=== PATIENT | female | born 1950 | race Hispanic/Latino ===

== ENCOUNTER 2017-09-30 20:30 | Inpatient (IN) | payer MEDICARE ==
[2017-09-30 21:48] LABS: Basophils % (Auto) 0.6 % (0.0-1.8); Eosinophils % (Auto) 2.7 % (0.0-4.3); Hematocrit 43.1 % (30.3-42.9); Hemoglobin 14.7 gm/dl (10.1-14.3); Mean Corpuscular HGB Conc 34 % (30-34); Mean Corpuscular Hemoglobin 32 pg (28-32); Mean Corpuscular Volume 93 fl (79-97); Platelet Count 169 K/mm3 (140-440); Red Blood Count 4.64 M/mm3 (3.65-5.03); Red Cell Distribution Width 12.2 % (13.2-15.2)
[2017-09-30 21:58] LABS: INR 0.78 (0.87-1.13)
[2017-09-30 21:59] LABS: Anion Gap 19 mmol/L; BUN/Creatinine Ratio 26; Blood Urea Nitrogen 13 mg/dL (7-17); Calcium 9.4 mg/dL (8.4-10.2); Carbon Dioxide 25 mmol/L (22-30); Glucose 384 mg/dL (65-100); Partial Thromboplastin Time 25.2 Sec. (24.2-36.6); Potassium 4.1 mmol/L (3.6-5.0); Sodium 136 mmol/L (137-145)
--- NOTE | 2017-09-30 23:11 | Emergency Department Report ---
ED Chest Pain HPI - General Chief Complaint: Chest Pain Stated Complaint: CHEST PAIN Time Seen by Provider: 09/30/17 21:16 Source: patient Mode of arrival: Stretcher Limitations: No Limitations - History of Present Illness Initial Comments: Patient said yesterday she started having chest pain on the left side of her chest she took one sublingual nitroglycerin spray and the pain improved. She said this evening she had another episode of chest pain she took 2 sublingual nitroglycerin sprays and it improved. However about an hour later the pain came again on the left side radiating down the left arm which is when she decided to call 911 MD Complaint: chest pain Onset/Timin (hrs ago) -: Gradual Time: 19:20 Onset: during rest Pain Location: left chest Pain Radiation: LUE Severity: severe Severity scale (0 -10): 0 Quality: sharp Consistency: now resolved Improves With: nothing Worsens With: nothing re: nausea, dyspnea Treatments Prior to Arrival: none Aspirin use within the Past 7 Days: (1) Yes - Related Data Home Medications Medication Instructions Recorded Confirmed Last Taken Aspirin [Aspirin BABY CHEW TAB] 81 mg PO QDAY 03/11/14 10/08/14 03/11/14 Beclomethasone Dipropionate [Qvar 8.7 gm PO BID 03/11/14 10/08/14 03/11/14 80MCG] Citalopram Hydrobromide [celeXA] 20 mg PO HS 03/11/14 10/08/14 03/10/14 Clopidogrel Bisulfate [Plavix] 75 mg PO DAILY 03/11/14 10/08/14 03/11/14 Diclofenac Sodium [Voltaren] 100 gm TRANSDERMA DAILY PRN 03/11/14 10/08/1403/10 Duloxetine HCl [Cymbalta] 60 mg PO QDAY 03/11/14 10/08/14 03/11/14 Esomeprazole Magnesium [NexIUM] 40 mg PO QDAY 03/11/14 10/08/14 03/11/14 Gabapentin Enacarbil [Horizant] 600 mg PO 4XD 03/11/14 10/08/14 03/11/14 Insulin Glargine,Hum.rec.anlog 40 units SUB-Q HS 05/12/14 12/09/14 05/11/14 [Lantus] Levalbuterol Tartrate [Xopenex Hfa] 1 puff IH BID PRN 03/11/14 10/08/14 03/11/14 Morphine [Morphine TAB] 30 mg PO BID 03/11/14 10/08/14 03/11/14 Nitroglycerin [Nitrostat] 0.4 mg SL Q5M 03/11/14 10/08/14 Unknown Ranolazine [Ranexa] 500 mg PO BID 03/11/14 10/08/14 03/11/14 Rosuvastatin (Nf) [Crestor] 20 mg PO QHS 03/11/14 10/08/14 03/11/14 clonazePAM 0.5 mg PO TID 03/11/14 10/08/14 03/11/14 clonazePAM [KlonoPIN] 0.5 mg PO BID 03/11/14 10/08/14 03/11/14 Previous Rx's Medication Instructions Recorded Last Taken Type Ibuprofen [Motrin] 600 mg PO Q8H PRN #50 tablet 04/27/15 Unknown Rx Oxycodone HCl/Acetaminophen 1 each PO Q6HR PRN #20 tablet 04/27/15 Unknown Rx [Percocet 10-325 mg] Allergies Allergy/AdvReac Type Severity Reaction Status Date / Time hydromorphone HCl Allergy Itching Verified 04/26/15 13:53 [From Dilaudid] zolpidem tartrate Allergy Dizziness Verified 04/26/15 13:53 [From Ambien] Heart Score - HEART Score History: Moderately suspicious EKG: Non-specific Age: > 65 Risk factors: > 3 risk factors or hx of atherosclerotic disease Troponin: < normal limit HEART Score: 6 - Critical Actions Critical Actions: 4-6 pts:12-16.6% risk of adverse cardiac event. Should be admitted (will call for admit) ED Review of Systems ROS: Stated complaint: CHEST PAIN Other details as noted in HPI Comment: All other systems reviewed and negative ED Past Medical Hx - Past Medical History Previous Medical History?: Yes Hx Hypertension: Yes Hx Heart Attack/AMI: Yes Hx Congestive Heart Failure: Yes Hx Diabetes: Yes Hx Deep Vein Thrombosis: Yes Hx Arthritis: Yes Additional medical history: CAD - Surgical History Past Surgical History?: Yes Hx Coronary Stent: Yes (12) Additional Surgical History: Hysterectomy, Venkata. elbow surgery, Left knee replacement, Venkata. bunionectomy, Venkata Carpel tunnel surgery both wrist - Social History Smoking Status: Never Smoker Substance Use Type: None - Medications Home Medications: Home Medications Medication Instructions Recorded Confirmed Last Taken Type Aspirin [Aspirin BABY CHEW TAB] 81 mg PO QDAY 03/11/14 10/08/14 03/11/14 History Beclomethasone Dipropionate [Qvar 8.7 gm PO BID 03/11/14 10/08/14 03/11/14 History 80MCG] Citalopram Hydrobromide [celeXA] 20 mg PO HS 03/11/14 10/08/14 03/10/14 History Clopidogrel Bisulfate [Plavix] 75 mg PO DAILY 03/11/14 10/08/14 03/11/14 History Diclofenac Sodium [Voltaren] 100 gm TRANSDERMA DAILY PRN 03/11/14 10/08/1403/10 History Duloxetine HCl [Cymbalta] 60 mg PO QDAY 03/11/14 10/08/14 03/11/14 History Esomeprazole Magnesium [NexIUM] 40 mg PO QDAY 03/11/14 10/08/14 03/11/14 History Gabapentin Enacarbil [Horizant] 600 mg PO 4XD 03/11/14 10/08/14 03/11/14 History Insulin Glargine,Hum.rec.anlog 40 units SUB-Q HS 03/11/14 10/08/14 03/10/14 History [Lantus] Levalbuterol Tartrate [Xopenex Hfa] 1 puff IH BID PRN 03/11/14 10/08/14 History Morphine [Morphine TAB] 30 mg PO BID 03/11/14 10/08/14 03/11/14 History Nitroglycerin [Nitrostat] 0.4 mg SL Q5M 03/11/14 10/08/14 Unknown History Ranolazine [Ranexa] 500 mg PO BID 03/11/14 10/08/14 03/11/14 History Rosuvastatin (Nf) [Crestor] 20 mg PO QHS 03/11/14 10/08/14 03/11/14 History clonazePAM 0.5 mg PO TID 03/11/14 10/08/14 03/11/14 History clonazePAM [KlonoPIN] 0.5 mg PO BID 03/11/14 10/08/14 03/11/14 History Ibuprofen [Motrin] 600 mg PO Q8H PRN #50 tablet 04/27/15 Unknown Rx Oxycodone HCl/Acetaminophen 1 each PO Q6HR PRN #20 tablet 04/27/15 Unknown Rx [Percocet 10-325 mg] ED Physical Exam - General Limitations: No Limitations General appearance: alert, in no apparent distress - Head Head exam: Present: atraumatic, normocephalic - Eye Eye exam: Present: normal appearance, PERRL Pupils: Present: normal accommodation - ENT ENT exam: Present: normal exam, normal orophraynx, mucous membranes moist - Neck Neck exam: Present: normal inspection, full ROM - Respiratory Respiratory exam: Present: normal lung sounds bilaterally. Absent: respiratory distress, wheezes - Cardiovascular Cardiovascular Exam: Present: regular rate, normal rhythm - GI/Abdominal GI/Abdominal exam: Present: soft. Absent: distended, tenderness, guarding - Rectal Rectal exam: Present: deferred - Extremities Exam Extremities exam: Present: normal inspection, full ROM - Back Exam Back exam: Present: normal inspection, full ROM - Neurological Exam Neurological exam: Present: alert, oriented X3. Absent: altered - Skin Skin exam: Present: warm, dry ED Course Vital Signs 09/30/17 09/30/17 09/30/17 21:00 21:01 21:15 Temperature 98.3 F Pulse Rate 90 92 H 94 H Respiratory 16 16 12 Rate Blood Pressure 142/69 173/79 142/62 Blood Pressure 173/79 [Right] O2 Sat by Pulse 100 98 100 Oximetry 09/30/17 09/30/17 09/30/17 21:30 21:45 22:00 Temperature Pulse Rate 96 H 93 H 92 H Respiratory 16 13 15 Rate Blood Pressure 155/59 153/93 130/73 Blood Pressure [Right] O2 Sat by Pulse 100 100 100 Oximetry 09/30/17 09/30/17 22:15 22:34 Temperature Pulse Rate 93 H Respiratory 12 18 Rate Blood Pressure 153/93 Blood Pressure [Right] O2 Sat by Pulse 98 98 Oximetry SHAYNA score - Shayna Score Age > 65: (1) Yes Aspirin use within the Past 7 Days: (1) Yes 3 or more CAD Risk Factors: (1) Yes 2 or more Angina events in past 24 hrs: (1) Yes Known CAD with more than 50% Stenosis: (1) Yes Elevated Cardiac Markers: (0) No ST Deviation Greater than 0.5mm: (0) No SHAYNA Score: 5 ED Medical Decision Making - Lab Data Result diagrams: 09/30/17 21:26 09/30/17 21:26 - EKG Data -: EKG Interpreted by Me EKG shows normal: sinus rhythm, axis, intervals, QRS complexes, ST-T waves ( nonspecific ST and T-wave changes) Rate: normal - EKG Data Interpretation: no acute changes, unchanged when compared t (03/11/2014), nonspecific ST-T wave benjamin - Medical Decision Making will admit for acs rule out and further testing Critical care attestation.: If time is entered above; I have spent that time in minutes in the direct care of this critically ill patient, excluding procedure time. ED Disposition Clinical Impression: Chest pain Disposition: [id number] OP ADMIT IP TO THIS HOSP Is pt being admited?: Yes Does the pt Need Aspirin: No (took aspirin today) Condition: Stable Instructions: Chest Pain (ED)
--- NOTE | 2017-09-30 23:48 | XRay Report ---
FINAL REPORT PROCEDURE: XR CHEST 1V AP TECHNIQUE: Chest radiograph anteroposterior view. CPT 09704 HISTORY: Chest Pain COMPARISON: No prior studies are available for comparison. FINDINGS: Heart: Normal. Mediastinum/Vessels: Normal. Lungs/Pleural space: Lungs are clear and expanded. There are no infiltrates, effusions or pneumothoraces.. Bony thorax: No acute osseous abnormality. Life support devices: None. IMPRESSION: No acute cardiopulmonary abnormality.
--- NOTE | 2017-09-30 23:57 | History and Physical Report ---
History of Present Illness Date of examination: 09/30/17 History of present illness: 66-year-old woman history of hypertension, diabetes, coronary artery disease, history of 13 stents, CHF comes emergency room with complaints of epigastric pain which started last night. She describes as a sharp pain, intermittent intensity 5/10, radiating to the left shoulder. She took nitroglycerin for her pain which relieve her symptoms for 30 minutes, the second time nitroglycerin relieve her symptoms with 20 minutes and on the third occurrence the relief of shoulder and she came to the emergency room for further evaluation. Admits to nausea vomiting, no shortness of breat, diaphoresis or palpitation. Review Of Systems: Constitutional: no weight loss Ears, eyes, nose, mouth and throat: no nasal congestion, no nasal discharge, no sinus pressure, blurry vision, diplopia Neck: No neck pain or rigidity. Cardiovascular no , orthopnea, palpitations Respiratory: No cough Gastrointestinal: no abdominal pain, hematochezia Genitourinary : no dysuria, frequency , hematuria Musculoskeletal: no muscle ache Integumentary: no rash, no pruritis Neurological: no parathesias, focal weakness Endocrine: no cold or heat intolerance, no polyuria or polydipsia Hematologic/Lymphatic: no easy bruising, no easy bleeding, no gland swelling Allergic/Immunologic: no urticaria, no angioedema. PAST SURGICAL HISTORY: Hysterectomy, knee surgery, bunionectomy, elbow and finger surgery SOCIAL HISTORY: Denies alcohol, drug, tobacco FAMILY HISTORY: Hypertension Medications and Allergies Allergies Allergy/AdvReac Type Severity Reaction Status Date / Time hydromorphone HCl Allergy Itching Verified 04/26/15 13:53 [From Dilaudid] Sulfa (Sulfonamide Allergy Unknown Verified 10/01/17 00:57 Antibiotics) zolpidem tartrate Allergy Dizziness Verified 04/26/15 13:53 [From Ambien] Home Medications Medication Instructions Recorded Confirmed Last Taken Type Beclomethasone Dipropionate [Qvar 8.7 gm PO BID 03/11/14 10/01/17 03/11/14 History 80MCG] Clopidogrel Bisulfate [Plavix] 75 mg PO DAILY 03/11/14 10/01/17 03/11/14 History Insulin Glargine,Hum.rec.anlog 40 units SUB-Q HS PRN 03/11/14 10/01/17 03/10/14 History [Lantus] Levalbuterol Tartrate [Xopenex Hfa] 1 puff IH BID PRN 03/11/14 10/01/17 History Ranolazine [Ranexa] 500 mg PO BID 03/11/14 10/01/17 03/11/14 History Buprenorphine HCl/Naloxone HCl 1 each SL BID 10/01/17 10/01/17 Unknown History [Suboxone 8 mg-2 mg SL Film] Insulin NPH/Regular [NovoLIN 70/30] 35 unit SQ BIDDIAB 10/01/17 10/01/17 Unknown History Aspirin [Aspirin BABY CHEW TAB] 81 mg PO QDAY #30 tab.chew 10/03/17 Unknown Rx AtorvaSTATin [Lipitor] 40 mg PO QHS #30 tablet 10/03/17 Unknown Rx Buprenorphine/Naloxone [Suboxone 2 1 each SL BID film 10/03/17 Unknown Rx mg-0.5 mg SL Film] Citalopram Hydrobromide [celeXA] 20 mg PO HS #30 tablet 10/03/17 Unknown Rx Insulin Detemir [Levemir] 40 units SUB-Q QHS #7 units 10/03/17 Unknown Rx Nitroglycerin [Nitrostat] 0.4 mg SL Q5M #20 tablet 10/03/17 Unknown Rx Ranolazine [Ranexa] 1,000 mg PO BID #60 tab.er.12h 10/03/17 Unknown Rx Rosuvastatin (Nf) [Crestor] 20 mg PO QHS #30 tablet 10/03/17 Unknown Rx Exam - Physical Exam Narrative exam: Gen. appearance: Patient lying in bed in no acute distress HEENT: Normocephalic/atraumatic, pupils equal round reactive to light, extra alkaline movement intact, no scleral icterus, no JVD or thyromegaly or nodule, neck is supple, mucous membrane moist, no erythema or exudate Heart: S1-S2, regular rate and rhythm Lungs: Clear to auscultation bilateral breathing comfortable Abdomen: Positive bowel sounds, nontender, nondistended, no organomegaly Extremities: No edema, cyanosis, clubbing Neuro:: Oriented 3 , cranial nerves II-12 intact, speech, motor intact Skin: No rash, nodules, warm dry - Constitutional Vitals: Temp Pulse Resp BP Pulse Ox 98.3 F 93 H 18 153/93 98 09/30/17 21:01 09/30/17 22:15 09/30/17 22:34 09/30/17 22:15 09/30/17 22:34 Results - Labs CBC & Chem 7: 10/02/17 07:15 10/02/17 07:15 Labs: Abnormal lab results 09/30/17 09/30/17 09/30/17 Range/Units 21:26 21:26 21:26 Hgb 14.7 H (10.1-14.3) gm/dl Hct 43.1 H (30.3-42.9) % RDW 12.2 L (13.2-15.2) % [place] % (Auto) 7.9 H (0.0-7.3) % PT 11.2 L (12.2-14.9) Sec. INR 0.78 L (0.87-1.13) Sodium 136 L (137-145) mmol/L Chloride 96.0 L (98-107) mmol/L Creatinine 0.5 L (0.7-1.2) mg/dL Glucose 384 H (65-100) mg/dL - Imaging and Cardiology EKG: image reviewed Abdominal x-ray: image reviewed Assessment and Plan Assessment Unstable angina Coronary artery disease Hypertension Diabetes type 2 CHF, stable, probably diastolic dysfunction Plan Admit to medicine Check cardiac enzymes, cardiology consult Check fingersticks initiate insulin sliding scale Continue outpatient medication comes start DVT prophylaxis
[2017-10-01] MEDS ORDERED: XANAX PO ONE (01:43)
--- NOTE | 2017-10-01 09:44 | Progress Note ---
Assessment and Plan Assessment and plan: --Unstable angina; continue antiplatelets, beta blockers, sarah inhibitors, nitrates and statins Serial cardiac enzymes, cardiology evaluation --Coronary artery disease s/p multiple stents; continue current cardiac medications --Hypertension; resume home antihypertensives and when necessary medications --Diabetes type 2; moderate control, Accu-Chek sliding scale coverage and ADA diet and insulin --Acute on chronic diastolic dysfunction; continue anti-failure medication, low sodium diet, input output monitoring --DVT prophylaxis with Lovenox Follow cardiology evaluation and recommendations Plan of care discussed with the patient and her at the bedside Possible discharge in 1-2 days if stable History Interval history: Patient admitted with history of recurrent chest pain which was relieved by sublingual nitroglycerin Has history of coronary artery disease status post multiple stents Chest pain slightly improved today, denies shortness of breath no nausea or vomiting Vital signs reviewed Hospitalist Physical - Constitutional Vitals: Temp Pulse Resp BP Pulse Ox 98.3 F 66 16 131/58 98 10/01/17 07:51 10/01/17 08:06 10/01/17 07:51 10/01/17 07:49 10/01/17 07:49 General appearance: Present: no acute distress, well-nourished - EENT Eyes: Present: PERRL, EOM intact - Neck Neck: Present: supple, normal ROM - Respiratory Respiratory effort: normal, accessory muscle use - Cardiovascular Rhythm: regular Heart Sounds: Present: S1 & S2 - Extremities Extremities: no ischemia, pulses intact - Abdominal General gastrointestinal: soft, non-tender, non-distended, normal bowel sounds - Integumentary Integumentary: Present: clear, warm - Psychiatric Psychiatric: appropriate mood/affect, cooperative - Neurologic Neurologic: CNII-XII intact, moves all extremities Results - Labs CBC & Chem 7: 09/30/17 21:26 09/30/17 21:26 Labs: Laboratory Last Values WBC 8.0 K/mm3 (4.5-11.0) 09/30/17 21:26 RBC 4.64 M/mm3 (3.65-5.03) 09/30/17 21:26 Hgb 14.7 gm/dl (10.1-14.3) H 09/30/17 21:26 Hct 43.1 % (30.3-42.9) H 09/30/17 21:26 MCV 93 fl (79-97) 09/30/17 21:26 MCH 32 pg (28-32) 09/30/17 21:26 MCHC 34 % (30-34) 09/30/17 21:26 RDW 12.2 % (13.2-15.2) L 09/30/17 21:26 Plt Count 169 K/mm3 (140-440) 09/30/17 21:26 Lymph % (Auto) 22.3 % (13.4-35.0) 09/30/17 21:26 [place] % (Auto) 7.9 % (0.0-7.3) H 09/30/17 21:26 Eos % (Auto) 2.7 % (0.0-4.3) 09/30/17 21: Baso % (Auto) 0.6 % (0.0-1.8) 09/30/17 21: Lymph # 1.8 K/mm3 (1.2-5.4) 09/30/17 21:26 [place] # 0.6 K/mm3 (0.0-0.8) 09/30/17 21:26 Eos # 0.2 K/mm3 (0.0-0.4) 09/30/17 21:26 Baso # 0.0 K/mm3 (0.0-0.1) 09/30/17 21:26 Seg Neutrophils % 66.5 % (40.0-70.0) 09/30/17 21: Seg Neutrophils # 5.3 K/mm3 (1.8-7.7) 09/30/17 21:26 PT 11.2 Sec. (12.2-14.9) L 09/30/17 21:26 INR 0.78 (0.87-1.13) L 09/30/17 21:26 APTT 25.2 Sec. (24.2-36.6) 09/30/17 21:26 Sodium 136 mmol/L (137-145) L 09/30/17 21:26 Potassium 4.1 mmol/L (3.6-5.0) 09/30/17 21:26 Chloride 96.0 mmol/L (98-107) L 09/30/17 21:26 Carbon Dioxide 25 mmol/L (22-30) 09/30/17 21:26 Anion Gap 19 mmol/L 09/30/17 21:26 BUN 13 mg/dL (7-17) 09/30/17 21:26 Creatinine 0.5 mg/dL (0.7-1.2) L 09/30/17 21:26 Estimated GFR > 60 ml/min 09/30/17 21:26 BUN/Creatinine Ratio 26 % 09/30/17 21:26 Glucose 384 mg/dL (65-100) H 09/30/17 21:26 Calcium 9.4 mg/dL (8.4-10.2) 09/30/17 21:26 Troponin T < 0.010 ng/mL (0.00-0.029) 10/01/17 04:01
[2017-10-01] MEDS: LOVENOX SUB-Q SCH (10:29)
[2017-10-01] MEDS ORDERED: TYLENOL PO PRN (10:49)
[2017-10-01] MEDS ORDERED: Fluarix Quad 2017-2018(36 MOS+ IM ONE (12:00)
[2017-10-01] MEDS ORDERED: LEVALBUTEROL TARTRATE IH PRN (16:00)
[2017-10-01] MEDS ORDERED: INSULIN GLARGINE HUM REC ANLOG 40 UNIT SUB-Q PRN (16:00)
[2017-10-01] MEDS: NOVOLOG SUB-Q SCH ×2 (16:51→23:10)
[2017-10-01] MEDS ORDERED: PROVENTIL IH PRN (17:29)
[2017-10-01] MEDS: PROVENTIL IH SCH (20:07)
[2017-10-01] MEDS ORDERED: BECLOMETHASONE DIPROPIONATE 8.7 GM PO SCH (22:00)
[2017-10-01] MEDS ORDERED: BUPRENORPHINE HCL SL SCH (22:00)
[2017-10-01] MEDS: SUBOXONE 2 MG-0.5 MG SL SCH (22:00)
[2017-10-01] MEDS ORDERED: SUBOXONE 2 MG-0.5 MG SL SCH (22:00)
[2017-10-01] MEDS ORDERED: NALOXONE HCL SL SCH (22:00)
[2017-10-01] MEDS: RANEXA ER PO SCH (22:40)
[2017-10-01] MEDS: celeXA PO SCH (22:40)
[2017-10-01] MEDS: LEVEMIR SUB-Q SCH (23:10)
[2017-10-02] MEDS: PROVENTIL IH SCH ×2 (07:37→20:18)
[2017-10-02 07:42] LABS: Basophils % (Auto) 1.1 % (0.0-1.8); Eosinophils % (Auto) 4.9 % (0.0-4.3); Hematocrit 41.3 % (30.3-42.9); Hemoglobin 13.8 gm/dl (10.1-14.3); Mean Corpuscular HGB Conc 34 % (30-34); Mean Corpuscular Hemoglobin 31 pg (28-32); Mean Corpuscular Volume 91 fl (79-97); Platelet Count 172 K/mm3 (140-440); Red Blood Count 4.53 M/mm3 (3.65-5.03); Red Cell Distribution Width 12.3 % (13.2-15.2); White Blood Count 4.9 K/mm3 (4.5-11.0)
[2017-10-02 08:12] LABS: Anion Gap 17 mmol/L; BUN/Creatinine Ratio 33; Blood Urea Nitrogen 13 mg/dL (7-17); Calcium 8.8 mg/dL (8.4-10.2); Carbon Dioxide 25 mmol/L (22-30); Creatine Kinase 37 units/L (30-135); Glucose 202 mg/dL (65-100); Potassium 3.9 mmol/L (3.6-5.0); Sodium 140 mmol/L (137-145)
[2017-10-02] MEDS: NOVOLOG SUB-Q SCH ×4 (09:34→22:00)
[2017-10-02] MEDS ORDERED: ZOFRAN IV PRN (10:06)
[2017-10-02] MEDS: SUBOXONE 2 MG-0.5 MG SL SCH ×2 (10:30→23:07)
[2017-10-02] MEDS: RANEXA ER PO SCH ×2 (10:31→22:38)
[2017-10-02] MEDS: BABY ASPIRIN PO SCH (10:31)
[2017-10-02] MEDS: LOVENOX SUB-Q SCH (10:32)
[2017-10-02] MEDS: PLAVIX PO SCH (10:32)
--- NOTE | 2017-10-02 11:07 | Consultation ---
History of Present Illness Consult date: 10/02/17 Consult reason: chest pain History of present illness: 66-year-old female with a history of essential hypertension diabetes mellitus coronary artery disease presenting with CVA and left precordial chest pain at rest radiating to her left shoulder and down her left arm. Pain was relieved by using sublingual nitroglycerin. Patient normally sees her it auditor at [facility] doctor Florina Past History Past Medical History: CAD, diabetes, hypertension Past Surgical History: PTCA Social history: no significant social history Medications and Allergies Allergies Allergy/AdvReac Type Severity Reaction Status Date / Time hydromorphone HCl Allergy Itching Verified 04/26/15 13:53 [From Dilaudid] Sulfa (Sulfonamide Allergy Unknown Verified 10/01/17 00:57 Antibiotics) zolpidem tartrate Allergy Dizziness Verified 04/26/15 13:53 [From Ambien] Home Medications Medication Instructions Recorded Confirmed Last Taken Type Aspirin [Aspirin BABY CHEW TAB] 81 mg PO QDAY 03/11/14 10/01/17 03/11/14 History Beclomethasone Dipropionate [Qvar 8.7 gm PO BID 03/11/14 10/01/17 03/11/14 History 80MCG] Citalopram Hydrobromide [celeXA] 20 mg PO HS 03/11/14 10/01/17 03/10/14 History Clopidogrel Bisulfate [Plavix] 75 mg PO DAILY 03/11/14 10/01/17 03/11/14 History Insulin Glargine,Hum.rec.anlog 40 units SUB-Q HS PRN 03/11/14 10/01/17 03/10/14 History [Lantus] Levalbuterol Tartrate [Xopenex Hfa] 1 puff IH BID PRN 03/11/14 10/01/17 History Nitroglycerin [Nitrostat] 0.4 mg SL Q5M 03/11/14 10/01/17 09/30/17 19:20 History Ranolazine [Ranexa] 500 mg PO BID 03/11/14 10/01/17 03/11/14 History Rosuvastatin (Nf) [Crestor] 20 mg PO QHS 03/11/14 10/01/17 03/11/14 History Buprenorphine HCl/Naloxone HCl 1 each SL BID 10/01/17 10/01/17 Unknown History [Suboxone 8 mg-2 mg Sl Film] Insulin NPH/Regular [Novolin 70/30] 35 unit SQ BIDDIAB 10/01/17 10/01/17 Unknown History Active Meds: Active Medications Acetaminophen (Tylenol) 650 mg PO Q4H PRN PRN Reason: Pain, Mild (1-3) Albuterol (Proventil) 2.5 mg IH BIDRT [facility] Last Admin: 10/02/17 07:37 Dose: 2.5 mg Albuterol (Proventil) 2.5 mg IH Q6HRT PRN PRN Reason: Shortness Of Breath Aspirin (Baby Aspirin) 81 mg PO QDAY [facility] Last Admin: 10/02/17 10:31 Dose: 81 mg Atorvastatin Calcium (Lipitor) 40 mg PO QHS [facility] Last Admin: 10/01/17 22:40 Dose: 40 mg Buprenorphine HCl (Suboxone 2 Mg-0.5 Mg) 1 each SL BID [facility] Last Admin: 10/01/17 22:00 Dose: 1 each Citalopram Hydrobromide (Celexa) 20 mg PO HS [facility] Last Admin: 10/01/17 22:40 Dose: 20 mg Clopidogrel Bisulfate (Plavix) 75 mg PO DAILY [facility] Last Admin: 10/02/17 10:32 Dose: 75 mg Enoxaparin Sodium (Lovenox) 40 mg SUB-Q QDAY [facility] Last Admin: 10/02/17 10:32 Dose: 40 mg Insulin Aspart (Novolog) 0 units SUB-Q ACHS [facility] PRN Reason: Protocol Last Admin: 10/02/17 09:34 Dose: 3 units Insulin Detemir (Levemir) 40 units SUB-Q QHS [facility] Last Admin: 10/01/17 23:10 Dose: 40 units Miscellaneous Medication (Beclomethasone Dipropionate [Qvar 80mcg]) 8.7 gm PO BID [facility] Ondansetron HCl (Zofran) 4 mg IV Q4H PRN PRN Reason: Nausea And Vomiting Last Admin: 10/02/17 10:32 Dose: 4 mg Ranolazine (Ranexa Er) 500 mg PO BID [facility] Last Admin: 10/02/17 10:31 Dose: 500 mg Review of Systems Constitutional: no weight loss, no weight gain, no weakness, no malaise, no lethargy Ears, nose, mouth and throat: no deferred Breasts: no deferred Cardiovascular: chest pain, no orthopnea, no palpitations, no edema, no dyspnea on exertion, no paroxysmal nocturnal dyspnea Respiratory: no cough, no cough with sputum, no hemoptysis, no home oxygen Gastrointestinal: no abdominal pain, no nausea, no vomiting, no melena Genitourinary Female: no dyspareunia, no pelvic pain, no flank pain, no menorrhagia, no dysuria, no urinary frequency Menstruation: no currently menstrual Musculoskeletal: no neck stiffness, no neck pain, no redness of joints Integumentary: no deferred, no rash, no pruritis Neurological: no head injury, no weakness, no parathesias, no numbness, no tingling Psychiatric: no anxiety Hematologic/Lymphatic: no easy bruising Allergic/Immunologic: no urticaria, no allergic rhinitis Physical Examination Vital Signs Pulse Resp BP Pulse Ox 90 16 142/69 100 09/30/17 21:00 09/30/17 21:00 09/30/17 21:00 09/30/17 21:00 General appearance: no acute distress, well-nourished HEENT: Positive: PERRL, Mucus Membranes Moist Neck: Positive: neck supple, trachea midline Cardiac: Positive: Reg Rate and Rhythm, S1/S2. Negative: Audible Murmur Lungs: Positive: clear to auscultation, Normal Breath Sounds Neuro: Positive: Grossly Intact Abdomen: Positive: Soft, Active Bowel Sounds. Negative: Tender, Distended Female genitourinary: deferred Skin: Positive: Clear Incision: Cardiac Cath Site Musculoskeletal: No Pain, Normal Range of Motion Extremities: Present: normal. Absent: edema Results 10/02/17 07:15 10/02/17 07:15 Cardiac Enzymes 10/02/17 Range/Units 07:15 CK-MB (CK-2) 2.0 (0.0-4.0) ng/mL CBC 10/02/17 Range/Units 07:15 WBC 4.9 (4.5-11.0) K/mm3 RBC 4.53 (3.65-5.03) M/mm3 Hgb 13.8 (10.1-14.3) gm/dl Hct 41.3 (30.3-42.9) % Plt Count 172 (140-440) K/mm3 Lymph # 1.4 (1.2-5.4) K/mm3 [place] # 0.5 (0.0-0.8) K/mm3 Eos # 0.2 (0.0-0.4) K/mm3 Baso # 0.1 (0.0-0.1) K/mm3 Comprehensive Metabolic Panel 10/02/17 Range/Units 07:15 Sodium 140 (137-145) mmol/L Potassium 3.9 (3.6-5.0) mmol/L Chloride 102.0 (98-107) mmol/L Carbon Dioxide 25 (22-30) mmol/L BUN 13 (7-17) mg/dL Creatinine 0.4 L (0.7-1.2) mg/dL Glucose 202 H (65-100) mg/dL Calcium 8.8 (8.4-10.2) mg/dL EKG interpretations - Telemetry EKG Rhythm: Sinus Rhythm Assessment and Plan 1. Acute precordial chest pain rule out ischemic coronary artery disease 2. Coronary artery disease history of multiple stents 3. Essential hypertension 4. Hyperlipidemia 5. Type 2 diabetes mellitus Plan. Serum troponin levels are negative. Schedule patient for a Lexiscan thallium scan in the morning check echocardiogram.
--- NOTE | 2017-10-02 14:43 | Progress Note ---
Assessment and Plan - Patient Problems (1) Chronic chest pain Current Visit: No Status: Acute (2) Anxiety Current Visit: No Status: Chronic Plan to address problem: Running chest pain coronary artery disease history of angina. We'll have Lexiscan done in the a.m. (3) CAD (coronary artery disease) Current Visit: No Status: Chronic Plan to address problem: Patient chest pain-free coronary artery disease DEXA scan done in the a.m. Risk factors hyperlipidemia diabetes and hypertension. (4) Diabetes Current Visit: No Status: Chronic Plan to address problem: Fair control of diabetes continue sliding scale insulin. (5) Fibromyalgia Current Visit: No Status: Chronic History Interval history: Patient currently chest pain-free resting comfortably with . No acute distress. Chest pain resolved. Hospitalist Physical - Constitutional Vitals: Temp Pulse Resp BP Pulse Ox 98.7 F 83 18 148/78 92 10/02/17 12:11 10/02/17 12:11 10/02/17 12:11 10/02/17 12:11 10/02/17 12:11 General appearance: Present: no acute distress, well-nourished - EENT Eyes: Present: PERRL, EOM intact ENT: hearing intact, clear oral mucosa, dentition normal - Neck Neck: Present: supple, normal ROM - Respiratory Respiratory effort: normal Respiratory: bilateral: CTA - Cardiovascular Rhythm: regular Heart Sounds: Present: S1 & S2 - Extremities Extremities: no ischemia, pulses intact Peripheral Pulses: within normal limits - Abdominal General gastrointestinal: soft, non-tender, non-distended - Integumentary Integumentary: Present: clear, warm, dry - Psychiatric Psychiatric: appropriate mood/affect - Neurologic Neurologic: CNII-XII intact Results - Labs CBC & Chem 7: 10/02/17 07:15 10/02/17 07:15 Labs: Laboratory Last Values WBC 4.9 K/mm3 (4.5-11.0) 10/02/17 07:15 RBC 4.53 M/mm3 (3.65-5.03) 10/02/17 07:15 Hgb 13.8 gm/dl (10.1-14.3) 10/02/17 07:15 Hct 41.3 % (30.3-42.9) 10/02/17 07:15 MCV 91 fl (79-97) 10/02/17 07:15 MCH 31 pg (28-32) 10/02/17 07:15 MCHC 34 % (30-34) 10/02/17 07:15 RDW 12.3 % (13.2-15.2) L 10/02/17 07:15 Plt Count 172 K/mm3 (140-440) 10/02/17 07:15 Lymph % (Auto) 28.3 % (13.4-35.0) 10/02/17 07:15 Sawyer % (Auto) 10.8 % (0.0-7.3) H 10/02/17 07:15 Eos % (Auto) 4.9 % (0.0-4.3) H 10/02/17 07:15 Baso % (Auto) 1.1 % (0.0-1.8) 10/02/17 07:15 Lymph # 1.4 K/mm3 (1.2-5.4) 10/02/17 07:15 Sawyer # 0.5 K/mm3 (0.0-0.8) 10/02/17 07:15 Eos # 0.2 K/mm3 (0.0-0.4) 10/02/17 07:15 Baso # 0.1 K/mm3 (0.0-0.1) 10/02/17 07:15 Seg Neutrophils % 54.9 % (40.0-70.0) 10/02/17 07:15 Seg Neutrophils # 2.7 K/mm3 (1.8-7.7) 10/02/17 07:15 PT 11.2 Sec. (12.2-14.9) L 09/30/17 21:26 INR 0.78 (0.87-1.13) L 09/30/17 21:26 APTT 25.2 Sec. (24.2-36.6) 09/30/17 21:26 Sodium 140 mmol/L (137-145) 10/02/17 07:15 Potassium 3.9 mmol/L (3.6-5.0) 10/02/17 07:15 Chloride 102.0 mmol/L (98-107) 10/02/17 07:15 Carbon Dioxide 25 mmol/L (22-30) 10/02/17 07:15 Anion Gap 17 mmol/L 10/02/17 07:15 BUN 13 mg/dL (7-17) 10/02/17 07:15 Creatinine 0.4 mg/dL (0.7-1.2) L 10/02/17 07:15 Estimated GFR > 60 ml/min 10/02/17 07:15 BUN/Creatinine Ratio 33 % 10/02/17 07:15 Glucose 202 mg/dL (65-100) H 10/02/17 07:15 POC Glucose 203 (70-105) H 10/02/17 06:38 Calcium 8.8 mg/dL (8.4-10.2) 10/02/17 07:15 Magnesium 1.80 mg/dL (1.7-2.3) 10/02/17 07:15 Total Creatine Kinase 37 units/L (30-135) 10/02/17 07:15 CK-MB (CK-2) 2.0 ng/mL (0.0-4.0) 10/02/17 07:15 CK-MB (CK-2) Rel Index 5.4 (0-4) H 10/02/17 07:15 Troponin T < 0.010 ng/mL (0.00-0.029) 10/02/17 07:15
[2017-10-02] MEDS: LEVEMIR SUB-Q SCH (22:00)
[2017-10-02] MEDS: celeXA PO SCH (22:38)
[2017-10-03] MEDS: NOVOLOG SUB-Q SCH ×2 (07:30→12:27)
[2017-10-03] MEDS ORDERED: LEXISCAN IV ONE ×2 (08:22)
[2017-10-03] MEDS: PROVENTIL IH SCH ×2 (09:21→12:00)
[2017-10-03] MEDS: LOVENOX SUB-Q SCH (12:11)
[2017-10-03] MEDS: PLAVIX PO SCH (12:11)
[2017-10-03] MEDS: RANEXA ER PO SCH (12:11)
[2017-10-03] MEDS: BABY ASPIRIN PO SCH (12:12)
[2017-10-03 12:22] VITALS: BP 138/48
[2017-10-03] MEDS: SUBOXONE 2 MG-0.5 MG SL SCH (14:20)
--- NOTE | 2017-10-03 14:36 | Discharge Summary ---
Providers - Providers Date of Admission: 09/30/17 23:57 Date of discharge: 10/03/17 Attending physician: CHRISTINA LEWIS 10/01/17 11:15 Consult to Physician [CONS] Routine Consulting Provider: EJ DIAZ Reason For Exam: chest pain/CAD s/p multiple stents Place consult to:: [facility] Notified:: y Phone number called:: [phone] Was contact made?: Yes If yes, spoke with:: soham Time called:: 11:57 Comment:: added to list Primary care physician: STATOR WINDER Hospitalization Condition: Good Pertinent studies: Stress tests Hospital course: 66-year-old presents with chronic chest pain has patient also risk factors of hypertension and diabetes has been doing well. Current Lexiscan negative plan is to increase Ranexa 1000 mg twice a day. Disposition: TO HOME OR SELFCARE - Discharge Diagnoses (1) Chronic chest pain Status: Acute Comment: stress test unremarkable f/u cardiology (2) Anxiety Status: Chronic (3) CAD (coronary artery disease) Status: Chronic Comment: Stress test negative stable angina increased Ranexa to 1000 mg twice a day. (4) Diabetes Status: Chronic (5) Fibromyalgia Status: Chronic Core Measure Documentation - Palliative Care Palliative Care/ Comfort Measures: Not Applicable - Core Measures Any of the following diagnoses?: none Exam - Constitutional Vitals: Temp Pulse Resp BP Pulse Ox 98.6 F 76 18 138/48 96 10/03/17 12:17 10/03/17 12:17 10/03/17 12:17 10/03/17 12:17 10/03/17 12:17 General appearance: Present: no acute distress, well-nourished - EENT Eyes: Present: PERRL ENT: hearing intact, clear oral mucosa - Neck Neck: Present: supple, normal ROM - Respiratory Respiratory effort: normal Respiratory: bilateral: CTA - Cardiovascular Heart Sounds: Present: S1 & S2. Absent: rub, click - Extremities Extremities: pulses symmetrical, No edema Peripheral Pulses: within normal limits - Abdominal General gastrointestinal: Present: soft, non-tender, non-distended, normal bowel sounds Female genitourinary: Present: normal - Integumentary Integumentary: Present: clear, warm, dry - Musculoskeletal Musculoskeletal: gait normal, strength equal bilaterally - Psychiatric Psychiatric: appropriate mood/affect, intact judgment & insight - Neurologic Neurologic: CNII-XII intact, moves all extremities Plan Activity: no restrictions Weight Bearing Status: Full Weight Bearing Diet: low fat, low cholesterol Follow up with: [facility] [Provider Group] - 7 Days [facility], [Primary Care Provider] - 7 Days Prescriptions: Aspirin [Aspirin BABY CHEW TAB] 81 mg PO QDAY #30 tab.chew AtorvaSTATin [Lipitor] 40 mg PO QHS #30 tablet Citalopram Hydrobromide [celeXA] 20 mg PO HS #30 tablet Insulin Detemir [Levemir] 40 units SUB-Q QHS #7 units Nitroglycerin [Nitrostat] 0.4 mg SL Q5M #20 tablet Rosuvastatin (Nf) [Crestor] 20 mg PO QHS #30 tablet
--- NOTE | 2017-10-03 17:44 | Progress Note ---
Assessment and Plan - Patient Problems (1) Chest pain Status: Acute Plan to address problem: Patient underwent Persantine thallium stress test today, noted with a moderate sized, fixed inferior defect, with minimal reversibility. 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 She is on medical therapy for this pathology. The thallium stress test findings consistent with her chronic right coronary occlusion, and will continue medical management. Ranexa anti-anginal will be increased from 500 to 1,000 mg twice a day. Otherwise, she is stable for cardiac discharge. Subjective Date of service: 10/03/17 Interval history: Patient underwent Persantine thallium stress test today, noted with a moderate sized, fixed inferior defect, with minimal reversibility. 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 She is on medical therapy for this pathology. The thallium stress test findings consistent with her chronic right coronary occlusion, and will continue medical management. Ranexa anti-anginal will be increased from 500 to 1,000 mg twice a day. Otherwise, she is stable for cardiac discharge. Objective Vital Signs Temp Pulse Pulse Resp Resp BP Pulse Ox 10/03/17 12:17 98.6 F 76 18 138/48 96 10/03/17 12:15 83 18 10/03/17 12:00 74 18 10/03/17 09:27 95 H 150/73 10/03/17 09:26 98 H 159/72 10/03/17 09:25 99 H 157/66 10/03/17 09:24 100 H 127/67 10/03/17 09:23 95 H 146/76 10/03/17 08:22 77 173/85 10/03/17 04:58 98.1 F 78 18 145/57 94 10/03/17 00:35 98.3 F 79 17 138/62 87 10/02/17 22:00 95 H 10/02/17 20:36 78 18 10/02/17 20:20 77 16 10/02/17 19:15 98.4 F 75 20 161/63 93 - Physical Examination General: Appears Well, No Apparent Distress HEENT: Positive: PERRL, Mucus Membranes Moist Neck: Positive: neck supple, trachea midline Cardiac: Positive: Reg Rate and Rhythm Lungs: Positive: clear to auscultation Neuro: Positive: Grossly Intact Abdomen: Positive: Soft, Active Bowel Sounds. Negative: Tender, Distended Skin: Positive: Clear Incision: Cardiac Cath Site Musculoskeletal: No Pain, Normal Range of Motion Extremities: Present: normal. Absent: edema - Imaging and Cardiology EKG: image reviewed
--- NOTE | 2017-10-04 07:20 | Treadmill Report ---
THALLIUM STRESS TEST LEFT VENTRICLE: Left ventricular chamber size is within normal spread. Perfusion study demonstrates a moderate size, fixed inferior defect. On the resting study, there is minimal to no significant reversibility. Gated analysis demonstrates normal left ventricular systolic function, ejection fraction greater than 70%. 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 Clinical correlation is recommended. [facility]# [id number] [place]/NTS
--- NOTE | 2017-10-07 14:33 | Query- Chest Pain ---
[facility] [place] Date:____10/07/17 Supervisor [employer]/CDS:____Lindsey / Andrei Phone#: [phone] Exercise your independent professional judgment when responding to query. Questions asked do not imply a particular answer is desired or expected. We greatly appreciate your clarification on this issue. Clinical Documentation States: 66 year old female was admitted on 09/30/17 The discharge summary (Dr. Junior) states " 66-year-old presents with chronic chest pain has patient also risk factors of hypertension and diabetes has been doing well. - Discharge Diagnoses (1) Chronic chest pain (3) CAD (coronary artery disease) (2) Anxiety " Please document the etiology of Chest Pain: [ ] Myocardial Infarction [ ] Pneumonia [ ] Mediastinitis [ ] Costochondritis [ ] Pulmonary Embolism [ ] Coronary Artery Disease [ ] GERD [ ] Other: [ ] Comment/Explanation: Present on Admission: [ ] Yes (Y) [ ] Clinically undeterminable (W) [ ] No(N) Please document response in your Progress Notes and/or Discharge Summary and indicate if the condition was present on admission. THALIA
--- NOTE | 2017-11-03 11:10 | Query- Chest Pain ---
[place]____[place] Date:_10/07/[address]/CDS:__Lindsey/Andrei Phone#:__[phone] Exercise your independent professional judgment when responding to query. Questions asked do not imply a particular answer is desired or expected. We greatly appreciate your clarification on this issue. Clinical Documentation States: 66 year old female was admitted on 09/30/17 The Discharge Summary (Dr. Junior ) states "66-year-old presents with chronic chest pain has patient also risk factors of hypertension and diabetes has been doing well - Discharge Diagnoses (1) Chronic chest pain (2) Anxiety (3) CAD (coronary artery disease) " Please document the etiology of Chest Pain: [ ] Myocardial Infarction [ ] Pneumonia [ ] Mediastinitis [x ] Costochondritis [ ] Pulmonary Embolism [ ] Coronary Artery Disease [ ] GERD [ ] Other: [ ] Comment/Explanation: Present on Admission: [x ] Yes (Y) [ ] Clinically undeterminable (W) [ ] No(N) Please document response in your Progress Notes and/or Discharge Summary and indicate if the condition was present on admission. THALIA
== END 2017-10-03 16:07 | disposition home or self-care (01) | DRG 205 ==
LOC: ED 20:30 → 4A 23:57
PROVIDERS: ADMIT Internal Medicine; ATTEND Internal Medicine
PROC: 3E0234Z Introduction of Serum, Toxoid and Vaccine into Muscle, Percutaneous Approach (ICD-10-PCS; principal; 2017-10-01)
DX: M94.0 Chondrocostal junction syndrome [Tietze] (principal); I50.33 Acute on chronic diastolic (congestive) heart failure; I25.110 Atherosclerotic heart disease of native coronary artery with unstable angina pectoris; I11.0 Hypertensive heart disease with heart failure; E11.9 Type 2 diabetes mellitus without complications; Z96.652 Presence of left artificial knee joint; M19.90 Unspecified osteoarthritis, unspecified site; F41.9 Anxiety disorder, unspecified; M79.7 Fibromyalgia; G89.29 Other chronic pain; Z23 Encounter for immunization; Z79.82 Long term (current) use of aspirin; Z79.899 Other long term (current) drug therapy; Z95.5 Presence of coronary angioplasty implant and graft; Z86.718 Personal history of other venous thrombosis and embolism; Z82.49 Family history of ischemic heart disease and other diseases of the circulatory system; Z88.2 Allergy status to sulfonamides; Z90.710 Acquired absence of both cervix and uterus; Z79.4 Long term (current) use of insulin; Z88.8 Allergy status to other drugs, medicaments and biological substances; Z79.02 Long term (current) use of antithrombotics/antiplatelets; I25.2 Old myocardial infarction
CPT/HCPCS: 36415; 71010; 78452; 80048; 82550; 82553; 82962; 83735; 84484; 85025; 85610; 85730; 90686; 93005; 93010; 93017; 93306; 94640; 94760; A9270-GY; A9502; J1650; J1815; J1818; J2785

== ENCOUNTER 2019-07-30 18:37 | Observation (INO) | payer MEDICARE ==
[2019-07-30] MEDS ORDERED: ASPIRIN PO ONE (19:00)
--- NOTE | 2019-07-30 19:01 | Event Note ---
ED Screening Note Date of service: 07/30/19 Time: 18:57 ED Screening Note: This is a 68 y.o. F. that presents to the ER with chest pain and SOB for 6 days. Patient went to PCP today and told to f/u in ER. PMH of COPD, stents x 13, CAD, anxiety, and fibromyalgia. Reports pain as pressure intensity that is non radiating. This initial assessment/diagnostic orders/clinical plan/treatment(s) is/are subject to change based on patients health status, clinical progression and re- assessment by fellow clinical providers in the ED. Further treatment and workup at subsequent clinical providers discretion. Patient/guardian urged not to elope from the ED as their condition may be serious if not clinically assessed and managed. Initial orders include: Labs, EKG, & CXR
[2019-07-30 19:25] LABS: Basophils % (Auto) 0.4 % (0.0-1.8); Eosinophils % (Auto) 0.2 % (0.0-4.3); Hematocrit 41.5 % (30.3-42.9); Hemoglobin 14.1 gm/dl (10.1-14.3); Lymphocytes # (Auto) 0.7 K/mm3 (1.2-5.4); Lymphocytes % (Auto) 11.3 % (13.4-35.0); Mean Corpuscular HGB Conc 34 % (30-34); Mean Corpuscular Volume 93 fl (79-97); Monocytes # (Auto) 0.1 K/mm3 (0.0-0.8); Monocytes % (Auto) 1.5 % (0.0-7.3); Platelet Count 202 K/mm3 (140-440); Red Blood Count 4.48 M/mm3 (3.65-5.03); Red Cell Distribution Width 12.8 % (13.2-15.2)
--- NOTE | 2019-07-30 19:29 | XRay Report ---
CHEST 2 VIEWS INDICATION / CLINICAL INFORMATION: Chest Pain. COMPARISON: 07/12/2018 FINDINGS: SUPPORT DEVICES: None. HEART / MEDIASTINUM: No significant abnormality. LUNGS / PLEURA: No significant pulmonary or pleural abnormality. No pneumothorax. ADDITIONAL FINDINGS: No significant additional findings. IMPRESSION: 1. No acute findings. Signer Name: Mark Lora MD Signed: 07/30/2019 7:25 PM Workstation Name: [id number]
[2019-07-30 19:47] LABS: BUN/Creatinine Ratio 30; Blood Urea Nitrogen 18 mg/dL (7-17); Calcium 9.4 mg/dL (8.4-10.2); Hemolysis Index 8
[2019-07-30] MEDS ORDERED: NACL 0.9% 1000 ML 1,000 ML IV ONE (20:55)
[2019-07-30] MEDS ORDERED: HumuLIN R IV ONE (20:55)
--- NOTE | 2019-07-30 22:42 | Cat Scan Report ---
CTA CHEST WITH CONTRAST INDICATION / CLINICAL INFORMATION: pleuritic chest pain elevated d-dimer. TECHNIQUE: Axial CT images were obtained through the chest after injection of 100 mL Omnipaque 350 IV contrast. 3 plane MIP and/or 3D reconstructions were produced. All CT scans at this location are performed usin g CT dose reduction for ALARA by means of automated exposure control. COMPARISON: None available. FINDINGS: PULMONARY ARTERIES: There are small pulmonary emboli in right lower lobe and right upper lobe branche s of the pulmonary artery. THORACIC AORTA: Mild atherosclerotic calcification without acute abnormality. HEART: No significant abnormality. CORONARY ARTERIES: Mild coronary artery calcification. Right coronary artery stent. MEDIASTINUM / KATHRYN: No significant abnormality. PLEURA: No pleural effusion. No pneumothorax. LUNGS: No acute air space or interstitial disease. ADDITIONAL FINDINGS: None. UPPER ABDOMEN: Moderate size sliding-type hiatal hernia. SKELETAL STRUCTURES: No significant osseous abnormality. IMPRESSION: 1. Small right upper and right lower lobe pulmonary emboli. 2. No acute pulmonary or pleural findings. CRITICAL RESULT: Time of Discovery (ROUTE DRIVER/CDT): 9:35 PM Time of Communication (ROUTE DRIVER/CDT): 9:38 PM Licensed Practitioner Receiving Report: Dr. Burrows in the ED Read Back Performed: Not applicable. Signer Name: Korey Miranda MD Signed: 07/30/2019 10:37 PM Workstation Name: [id number]
--- NOTE | 2019-07-30 23:10 | Emergency Department Report ---
ED Shortness of Breath HPI - General Chief Complaint: Chest Pain Stated Complaint: CHEST PRESSURE/SOB Time Seen by Provider: 07/30/19 18:57 Source: patient, family Mode of arrival: Ambulatory Limitations: No Limitations - History of Present Illness Initial Comments: Patient is a 68-year-old female with past history of hypertension diabetes COPD and significant coronary artery disease resulting in 13 stents who is here stating that she has some chest discomfort. Patient states early this morning she started having some chest pressure. She states this is not the same pressure she has when she has cardiac issues. There is no exertional component she states it just felt as though she had a overweight laying on her chest especially when she laid flat. Patient has had some sinus drainage and irritation for the last several days. Patient denies cough fevers or chills. Patient went to an urgent care and was noted to have some mild wheezing with shortness of breath and was given a neb treatment and a shot of blood sounds like Decadron. Patient was sent to the emergency department for further evaluation. - Related Data Home Medications Medication Instructions Recorded Confirmed Last Taken Beclomethasone Dipropionate [Qvar 8.7 gm PO BID 03/11/14 07/13/18 03/11/14 80MCG] Clopidogrel Bisulfate [Plavix] 75 mg PO DAILY 03/11/14 07/13/18 03/11/14 ALPRAZolam [Xanax TAB] 0.25 mg PO PRN PRN 07/13/18 07/14/18 Unknown Ranolazine [Ranexa] 1,000 mg PO QDAY 07/13/18 07/13/18 Unknown Previous Rx's Medication Instructions Recorded Last Taken Type Aspirin [Aspirin BABY CHEW TAB] 81 mg PO QDAY #30 tab.chew 10/03/17 Unknown Rx Buprenorphine/Naloxone [Suboxone 2 1 each SL BID film 10/03/17 Unknown Rx mg-0.5 mg SL Film] Detemir (Nf) [Levemir (Nf)] 40 units SUB-Q QHS #7 units 10/03/17 Unknown Rx Nitroglycerin [Nitrostat] 0.4 mg SL Q5M #20 tablet 10/03/17 Unknown Rx Rosuvastatin (Nf) [Crestor] 20 mg PO QHS #30 tablet 10/03/17 Unknown Rx Albuterol Sulfate [Ventolin HFA] 2 puff IH Q4H PRN #1 pump 07/14/18 Unknown Rx ISOSORBIDE MONOnitrate [Imdur ER] 60 mg PO QDAY #30 tablet 07/14/18 Unknown Rx Prednisone [predniSONE 5 mg (6-Day 5 mg PO .TAPER #1 tab.ds.pk 07/14/18 Unknown Rx Pack, 21 Tabs)] Allergies Allergy/AdvReac Type Severity Reaction Status Date / Time hydromorphone HCl Allergy Itching Verified 07/12/18 17:46 [From Dilaudid] oxymetazoline Allergy Swelling Verified 07/13/18 12:50 [From Afrin (oxymetazoline)] Sulfa (Sulfonamide Allergy Unknown Verified 07/12/18 17:46 Antibiotics) zolpidem tartrate Allergy Dizziness Verified 07/12/18 17:46 [From Ambien] ED Review of Systems ROS: Stated complaint: CHEST PRESSURE/SOB Other details as noted in HPI Comment: All other systems reviewed and negative ED Past Medical Hx - Past Medical History Previous Medical History?: Yes Hx Hypertension: Yes Hx Heart Attack/AMI: Yes Hx Congestive Heart Failure: Yes Hx Diabetes: Yes Hx Deep Vein Thrombosis: Yes Hx Arthritis: Yes Hx Asthma: Yes Hx COPD: Yes Additional medical history: CAD - Surgical History Hx Coronary Stent: Yes (13) Additional Surgical History: Hysterectomy, Venkata. elbow surgery, Left knee replacement, Venkata. bunionectomy, Venkata Carpel tunnel surgery both wrist - Social History Smoking Status: Never Smoker Substance Use Type: None - Medications Home Medications: Home Medications Medication Instructions Recorded Confirmed Last Taken Type Beclomethasone Dipropionate [Qvar 8.7 gm PO BID 03/11/14 07/13/18 03/11/14 History 80MCG] Clopidogrel Bisulfate [Plavix] 75 mg PO DAILY 03/11/14 07/13/18 03/11/14 History Aspirin [Aspirin BABY CHEW TAB] 81 mg PO QDAY #30 tab.chew 10/03/17 07/13/18 Unknown Rx Buprenorphine/Naloxone [Suboxone 2 1 each SL BID film 10/03/17 07/13/18 Unknown Rx mg-0.5 mg SL Film] Detemir (Nf) [Levemir (Nf)] 40 units SUB-Q QHS #7 units 10/03/17 07/13/18 Unknown Rx Nitroglycerin [Nitrostat] 0.4 mg SL Q5M #20 tablet 10/03/17 07/13/18 Unknown Rx Rosuvastatin (Nf) [Crestor] 20 mg PO QHS #30 tablet 10/03/17 07/13/18 Unknown Rx ALPRAZolam [Xanax TAB] 0.25 mg PO PRN PRN 07/13/18 07/14/18 Unknown History Ranolazine [Ranexa] 1,000 mg PO QDAY 07/13/18 07/13/18 Unknown History Albuterol Sulfate [Ventolin HFA] 2 puff IH Q4H PRN #1 pump 07/14/18 Unknown Rx ISOSORBIDE MONOnitrate [Imdur ER] 60 mg PO QDAY #30 tablet 07/14/18 Unknown Rx Prednisone [predniSONE 5 mg (6-Day 5 mg PO .TAPER #1 tab.ds.pk 07/14/18 Unknown Rx Pack, 21 Tabs)] ED Physical Exam - General Limitations: No Limitations General appearance: alert, in no apparent distress - Head Head exam: Present: atraumatic, normocephalic - Eye Eye exam: Present: normal appearance - ENT ENT exam: Present: mucous membranes moist - Neck Neck exam: Present: normal inspection - Respiratory Respiratory exam: Present: normal lung sounds bilaterally, rhonchi. Absent: respiratory distress, wheezes, rales, stridor - Cardiovascular Cardiovascular Exam: Present: regular rate, normal rhythm, normal heart sounds. Absent: systolic murmur, diastolic murmur, rubs, gallop - GI/Abdominal GI/Abdominal exam: Present: soft, normal bowel sounds. Absent: distended, tenderness, guarding, rebound, rigid - Extremities Exam Extremities exam: Present: normal inspection - Back Exam Back exam: Present: normal inspection - Neurological Exam Neurological exam: Present: alert, oriented X3 - Psychiatric Psychiatric exam: Present: normal affect, normal mood - Skin Skin exam: Present: warm, dry, intact, normal color. Absent: rash ED Course Vital Signs 07/30/19 07/30/19 18:58 19:55 Temperature 97.9 F 97.9 F Pulse Rate 75 80 Respiratory 18 12 Rate Blood Pressure 117/85 Blood Pressure 151/54 [Left] O2 Sat by Pulse 99 98 Oximetry ED Medical Decision Making - Lab Data Result diagrams: 07/30/19 19:08 07/30/19 19:08 Lab Results 07/30/19 07/30/19 07/30/19 Range/Units 19:08 19:08 19:57 WBC 5.9 (4.5-11.0) K/mm3 RBC 4.48 (3.65-5.03) M/mm3 Hgb 14.1 (10.1-14.3) gm/dl Hct 41.5 (30.3-42.9) % MCV 93 (79-97) fl MCH 32 (28-32) pg MCHC 34 (30-34) % RDW 12.8 L (13.2-15.2) % Plt Count 202 (140-440) K/mm3 Lymph % (Auto) 11.3 L (13.4-35.0) % Webb % (Auto) 1.5 (0.0-7.3) % Eos % (Auto) 0.2 (0.0-4.3) % Baso % (Auto) 0.4 (0.0-1.8) % Lymph # 0.7 L (1.2-5.4) K/mm3 Webb # 0.1 (0.0-0.8) K/mm3 Eos # 0.0 (0.0-0.4) K/mm3 Baso # 0.0 (0.0-0.1) K/mm3 Seg Neutrophils % 86.6 H (40.0-70.0) % Seg Neutrophils # 5.1 (1.8-7.7) K/mm3 D-Dimer 426.22 H (0-234) ng/mlDDU Sodium 135 L (137-145) mmol/L Potassium 4.1 (3.6-5.0) mmol/L Chloride 97.0 L (98-107) mmol/L Carbon Dioxide 23 (22-30) mmol/L Anion Gap 19 mmol/L BUN 18 H (7-17) mg/dL Creatinine 0.6 L (0.7-1.2) mg/dL Estimated GFR > 60 ml/min BUN/Creatinine Ratio 30 % Glucose 406 H (65-100) mg/dL Calcium 9.4 (8.4-10.2) mg/dL Troponin T < 0.010 (0.00-0.029) ng/mL 07/30/19 Range/Units 21:50 WBC (4.5-11.0) K/mm3 RBC (3.65-5.03) M/mm3 Hgb (10.1-14.3) gm/dl Hct (30.3-42.9) % MCV (79-97) fl MCH (28-32) pg MCHC (30-34) % RDW (13.2-15.2) % Plt Count (140-440) K/mm3 Lymph % (Auto) (13.4-35.0) % [place] % (Auto) (0.0-7.3) % Eos % (Auto) (0.0-4.3) % Baso % (Auto) (0.0-1.8) % Lymph # (1.2-5.4) K/mm3 Webb # (0.0-0.8) K/mm3 Eos # (0.0-0.4) K/mm3 Baso # (0.0-0.1) K/mm3 Seg Neutrophils % (40.0-70.0) % Seg Neutrophils # (1.8-7.7) K/mm3 D-Dimer (0-234) ng/mlDDU Sodium (137-145) mmol/L Potassium (3.6-5.0) mmol/L Chloride (98-107) mmol/L Carbon Dioxide (22-30) mmol/L Anion Gap mmol/L BUN (7-17) mg/dL Creatinine (0.7-1.2) mg/dL Estimated GFR ml/min BUN/Creatinine Ratio % Glucose (65-100) mg/dL Calcium (8.4-10.2) mg/dL Troponin T < 0.010 (0.00-0.029) ng/mL - EKG Data -: EKG Interpreted by Ct - EKG Data 07/30/19 23:10 EKG shows sinus rhythm a rate of 74. [place] is leftward is a left anterior fascicular block present. Patient's with Q waves anterior septal. Otherwise no ST segment elevations or depressions present. Time of interpretation is 1854 - Radiology Data [facility] [address] [place] [address] XRay Report Signed Patient: ANITAJONNY Christopher MR#: [id number] : 1950 Acct:[id number] Age/Sex: 68 / F ADM Date: 07/30/19 Loc: ED Attending Dr: Ordering Physician: NANDA GEORGE Date of Service: 07/30/19 Procedure(s): XR chest routine 2V Accession Number(s): [id number] cc: NANDA GEORGE Fluoro Time In Minutes: CHEST 2 VIEWS INDICATION / CLINICAL INFORMATION: Chest Pain. COMPARISON: 07/12/2018 FINDINGS: SUPPORT DEVICES: None. HEART / MEDIASTINUM: No significant abnormality. LUNGS / PLEURA: No significant pulmonary or pleural abnormality. No pneumothorax. ADDITIONAL FINDINGS: No significant additional findings. IMPRESSION: 1. No acute findings. Signer Name: Mark Lora MD Signed: 07/30/2019 7:25 PM Workstation Name: [id number] Transcribed By: MONROE Dictated By: Mark Lora MD Electronically Authenticated By: Mark Lora MD Signed Date/Time: 07/30/191924 [address] [address] Cat Scan Report Signed Patient: JONNY HOWARD MR#: [id number] : 1950 Acct:[id number] Age/Sex: 68 / F ADM Date: 07/30/19 Loc: ED Attending Dr: Ordering Physician: LANDY CRUZ MD Date of Service: 07/30/19 Procedure(s): CT angio chest Accession Number(s): [id number] cc: LANDY CRUZ MD CTA CHEST WITH CONTRAST INDICATION / CLINICAL INFORMATION: pleuritic chest pain elevated d-dimer. TECHNIQUE: Axial CT images were obtained through the chest after injection of 100 mL Omnipaque 350 IV contrast. 3 plane MIP and/or 3D reconstructions were produced. All CT scans at this location are performed using CT dose reduction for ALARA by means of automated exposure control. COMPARISON: None available. FINDINGS: PULMONARY ARTERIES: There are small pulmonary emboli in right lower lobe and right upper lobe branches of the pulmonary artery. THORACIC AORTA: Mild atherosclerotic calcification without acute abnormality. HEART: No significant abnormality. CORONARY ARTERIES: Mild coronary artery calcification. Right coronary artery stent. MEDIASTINUM / KATHRYN: No significant abnormality. PLEURA: No pleural effusion. No pneumothorax. LUNGS: No acute air space or interstitial disease. ADDITIONAL FINDINGS: None. UPPER ABDOMEN: Moderate size sliding-type hiatal hernia. SKELETAL STRUCTURES: No significant osseous abnormality. IMPRESSION: 1. Small right upper and right lower lobe pulmonary emboli. 2. No acute pulmonary or pleural findings. CRITICAL RESULT: Time of Discovery (STUD MASTER/MISTRESS/CDT): 9:35 PM Time of Communication (STUD MASTER/MISTRESS/CDT): 9:38 PM Licensed Practitioner Receiving Report: Dr. Cruz in the ED Read Back Performed: Not applicable. Signer Name: Korey Miranda MD Signed: 07/30/2019 10:37 PM Workstation Name: [id number] Transcribed By: DT Dictated By: Adithya Miranda MD Electronically Authenticated By: Adithya Miranda MD Signed Date/Time: 07/30/195 - Medical Decision Making Patient is a 68-year-old female who presented with chest discomfort that she describes as a weight on her chest specifically when laying flat with shortness of breath and some pleuritic symptoms as well. Patient did have elevated glucose without evidence of DKA. She was hydrated given a sling glucose has improved. Regarding the patient's chest discomfort since that 2 negative troponins making acute coronary syndrome less likely. Patient did have elevated d-dimer. Patient was sent for CT of the chest which was positive for several pulmonary emboli. The patient will be admitted to the hospitalist service at this time. Critical care attestation.: If time is entered above; I have spent that time in minutes in the direct care of this critically ill patient, excluding procedure time. ED Disposition Clinical Impression: Pulmonary emboli Qualifiers: Pulmonary embolism type: unspecified Chronicity: acute Acute cor pulmonale presence: without acute cor pulmonale Qualified Code(s): I26.99 - Other pulmonary embolism without acute cor pulmonale Disposition: OP ADMIT IP TO THIS HOSP Is pt being admited?: Yes Does the pt Need Aspirin: No Condition: Stable Referrals: PRIMARY CAREMD [Primary Care Provider] - 3-5 Days Time of Disposition: 23:13
[2019-07-30] MEDS ORDERED: ZOFRAN IV PRN (23:40)
[2019-07-30] MEDS ORDERED: SODIUM CHLORIDE FLUSH SYRINGE 10 ML IV PRN (23:40)
--- NOTE | 2019-07-30 23:42 | History and Physical Report ---
History of Present Illness Date of examination: 07/30/19 Chief complaint: Chest pain History of present illness: Patient is a 68-year-old female with history of CAD status post multip le stents placement who presented to the ED on account of a day history of mid- sternal chest pain. She described it as pressure-like in nature, rated 8/10, nonradiating and constant in duration. No known aggravating or relieving factors. She has associated shortness of breath, palpitation, diaphoresis, headaches and lightheadedness. She denies leg swelling or pain, cough, fever, chills, nausea, vomiting, syncope or loss of consciousness. No abdominal pain, constipation, diarrhea, dysuria or frequency. She initially visited her primary care physician and was given a steroid shot. Of note, patient recently traveled to [place] in car with her daughter, who was the bus driver and it took them 3 days. Past History Past Medical History: arthritis, CAD, COPD (and asthma), diabetes, hypertension, other (Anxiety) Past Surgical History: hysterectomy, Other (cardiac stents x13, Venkata. elbow surgery, Left knee replacement, Venkata. bunionectomy, Venkata Carpel tunnel surgery both wrist) Social history: other (she admits to occasional alcohol use but denies illicit drug use. She has remote history of cigarette smoking and 2nd hand smoking) Family history: CAD (brother) Medications and Allergies Allergies Allergy/AdvReac Type Severity Reaction Status Date / Time hydromorphone HCl Allergy Itching Verified 07/12/18 17:46 [From Dilaudid] oxymetazoline Allergy Swelling Verified 07/13/18 12:50 [From Afrin (oxymetazoline)] Sulfa (Sulfonamide Allergy Unknown Verified 07/12/18 17:46 Antibiotics) zolpidem tartrate Allergy Dizziness Verified 07/12/18 17:46 [From Ambien] Home Medications Medication Instructions Recorded Confirmed Last Taken Type Beclomethasone Dipropionate [Qvar 8.7 gm PO BID 03/11/14 07/13/18 03/11/14 History 80MCG] Clopidogrel Bisulfate [Plavix] 75 mg PO DAILY 03/11/14 07/13/18 03/11/14 History Aspirin [Aspirin BABY CHEW TAB] 81 mg PO QDAY #30 tab.chew 10/03/17 07/13/18 Unknown Rx Buprenorphine/Naloxone [Suboxone 2 1 each SL BID film 10/03/17 07/13/18 Unknown Rx mg-0.5 mg SL Film] Detemir (Nf) [Levemir (Nf)] 40 units SUB-Q QHS #7 units 10/03/17 07/13/18 Unknown Rx Nitroglycerin [Nitrostat] 0.4 mg SL Q5M #20 tablet 10/03/17 07/13/18 Unknown Rx Rosuvastatin (Nf) [Crestor] 20 mg PO QHS #30 tablet 10/03/17 07/13/18 Unknown Rx ALPRAZolam [Xanax TAB] 0.25 mg PO PRN PRN 07/13/18 07/14/18 Unknown History Ranolazine [Ranexa] 1,000 mg PO QDAY 07/13/18 07/13/18 Unknown History Albuterol Sulfate [Ventolin HFA] 2 puff IH Q4H PRN #1 pump 07/14/18 Unknown Rx ISOSORBIDE MONOnitrate [Imdur ER] 60 mg PO QDAY #30 tablet 07/14/18 Unknown Rx Prednisone [predniSONE 5 mg (6-Day 5 mg PO .TAPER #1 tab.ds.pk 07/14/18 Unknown Rx Pack, 21 Tabs)] Review of Systems All systems: negative (all other systems reviewed with the patient and are negative unless otherwise stated above) Exam - Constitutional Vitals: Temp Pulse Resp BP Pulse Ox 97.9 F 80 12 151/54 98 07/30/19 19:55 07/30/19 19:55 07/30/19 19:55 07/30/19 19:55 07/30/19 19:55 General appearance: Present: no acute distress, well-nourished - EENT Eyes: Present: PERRL, EOM intact ENT: hearing intact, clear oral mucosa - Neck Neck: Present: supple, normal ROM - Respiratory Respiratory effort: normal Respiratory: bilateral: CTA - Cardiovascular Rhythm: regular Heart Sounds: Present: S1 & S2. Absent: rub, click - Extremities Extremities: pulses symmetrical, No edema Peripheral Pulses: within normal limits - Abdominal General gastrointestinal: Present: soft, non-tender, non-distended, normal bowel sounds Female genitourinary: Present: deferred - Rectal Rectal Exam: deferred - Integumentary Integumentary: Present: clear, warm, dry - Musculoskeletal Musculoskeletal: gait normal, strength equal bilaterally - Psychiatric Psychiatric: appropriate mood/affect, intact judgment & insight - Neurologic Neurologic: CNII-XII intact, moves all extremities Results - Labs CBC & Chem 7: 07/30/19 19:08 07/30/19 19:08 Labs: Laboratory Last Values WBC 5.9 K/mm3 (4.5-11.0) 07/30/19 19:08 RBC 4.48 M/mm3 (3.65-5.03) 07/30/19 19:08 Hgb 14.1 gm/dl (10.1-14.3) 07/30/19 19:08 Hct 41.5 % (30.3-42.9) 07/30/19 19:08 MCV 93 fl (79-97) 07/30/19 19:08 MCH 32 pg (28-32) 07/30/19 19:08 MCHC 34 % (30-34) 07/30/19 19:08 RDW 12.8 % (13.2-15.2) L 07/30/19 19:08 Plt Count 202 K/mm3 (140-440) 07/30/19 19:08 Lymph % (Auto) 11.3 % (13.4-35.0) L 07/30/19 19:08 [place] % (Auto) 1.5 % (0.0-7.3) 07/30/19 19:08 Eos % (Auto) 0.2 % (0.0-4.3) 07/30/19 19:08 Baso % (Auto) 0.4 % (0.0-1.8) 07/30/19 19:08 Lymph # 0.7 K/mm3 (1.2-5.4) L 07/30/19 19:08 [place] # 0.1 K/mm3 (0.0-0.8) 07/30/19 19:08 Eos # 0.0 K/mm3 (0.0-0.4) 07/30/19 19:08 Baso # 0.0 K/mm3 (0.0-0.1) 07/30/19 19:08 Seg Neutrophils % 86.6 % (40.0-70.0) H 07/30/19 19:08 Seg Neutrophils # 5.1 K/mm3 (1.8-7.7) 07/30/19 19:08 D-Dimer 426.22 ng/mlDDU (0-234) H 07/30/19 19:57 Sodium 135 mmol/L (137-145) L 07/30/19 19:08 Potassium 4.1 mmol/L (3.6-5.0) 07/30/19 19:08 Chloride 97.0 mmol/L (98-107) L 07/30/19 19:08 Carbon Dioxide 23 mmol/L (22-30) 07/30/19 19:08 Anion Gap 19 mmol/L 07/30/19 19:08 BUN 18 mg/dL (7-17) H 07/30/19 19:08 Creatinine 0.6 mg/dL (0.7-1.2) L 07/30/19 19:08 Estimated GFR > 60 ml/min 07/30/19 19:08 BUN/Creatinine Ratio 30 % 07/30/19 19:08 Glucose 406 mg/dL (65-100) H 07/30/19 19:08 Calcium 9.4 mg/dL (8.4-10.2) 07/30/19 19:08 Troponin T < 0.010 ng/mL (0.00-0.029) 07/30/19 21:50 - Imaging and Cardiology CT scan - chest: report reviewed (small right upper and lower lobe emboli) Assessment and Plan Assessment and plan: Acute provoked PE -CTA chest showed small right upper and lower lobe emboli -started on eliquis -No prior history of emboli/DVT Acute chest pain -Likely 2/2 acute PE -serial troponin levels negative DM2 with hyperglycemia -On SSI and Lantus Mild hyponatremia -On IV fluid, will monitor sodium level CAD -Status post stents placement -stable HTN -Stable COPD/Asthma -No acute exacerbation Anxiety -on PRN Xanax Disposition: Patient will be admitted to observation status with plan for discharge within 24 hours if clinically stable
[2019-07-31] MEDS ORDERED: D50W (25GM) Syringe IV PRN (00:36)
[2019-07-31] MEDS: XANAX PO PRN ×2 (00:39→14:52)
[2019-07-31] MEDS: TYLENOL PO PRN ×2 (01:41→10:16)
[2019-07-31] MEDS: ELIQUIS PO SCH ×2 (02:00→10:17)
[2019-07-31] MEDS: LANTUS SUB-Q SCH ×2 (02:01→10:22)
[2019-07-31] MEDS: NACL 0.9% 1000 ML 1,000 ML IV SCH ×2 (02:10→11:14)
[2019-07-31 05:44] LABS: BUN/Creatinine Ratio 34; Blood Urea Nitrogen 17 mg/dL (7-17); Calcium 8.6 mg/dL (8.4-10.2); Hemolysis Index 4
[2019-07-31] MEDS ORDERED: PROAIR IH PRN (08:10)
[2019-07-31] MEDS ORDERED: XANAX PO PRN (08:10)
[2019-07-31] MEDS: HumaLOG SUB-Q SCH ×3 (08:23→16:50)
[2019-07-31] MEDS ORDERED: NITROSTAT SL SCH (09:00)
[2019-07-31] MEDS ORDERED: NITROSTAT SL PRN (09:37)
[2019-07-31] MEDS ORDERED: BABY ASPIRIN PO SCH (10:00)
[2019-07-31] MEDS ORDERED: PLAVIX PO SCH (10:00)
[2019-07-31] MEDS ORDERED: NON-FORMULARY (Ranolazine [Ranexa] 1,000 MG) PO SCH (10:00)
[2019-07-31] MEDS ORDERED: SODIUM CHLORIDE FLUSH SYRINGE 10 ML IV SCH (10:00)
[2019-07-31] MEDS ORDERED: BECLOMETHASONE DIPROPIONATE 8.7 GM PO SCH (10:00)
[2019-07-31] MEDS ORDERED: IMDUR PO SCH (10:00)
[2019-07-31] MEDS ORDERED: PROVENTIL IH PRN (10:35)
[2019-07-31] MEDS ORDERED: RANEXA ER PO SCH (11:00)
[2019-07-31 13:22] VITALS: BP 119/53
--- NOTE | 2019-07-31 13:29 | Discharge Summary ---
Providers - Providers Date of Admission: 07/30/19 23:24 Attending physician: JONI MCKEON MD 07/31/19 11:35 Physical Therapy Evaluation and Treat [CONS] Routine Comment: Reason For Exam: Weakness Primary care physician: [employer] Hospitalization Reason for admission: Pulmonary Embolism Condition: Stable Hospital course: Patient is a 68-year-old female with history of CAD status post multiple stents placement who presented to the ED on account of a day history of mid-sternal chest pain. She described it as pressure-like in nature, rated 8/10, nonradiating and constant in duration. No known aggravating or relieving factors. She has associated shortness of breath, palpitation, diaphoresis, headaches and lightheadedness. She denies leg swelling or pain, cough, fever, chills, nausea, vomiting, syncope or loss of consciousness. No abdominal pain, constipation, diarrhea, dysuria or frequency. She initially visited her primary care physician and was given a steroid shot. Of note, patient recently traveled to [place] in car with her daughter, who was the special education bus driver and it took them 3 days. Acute provoked PE -CTA chest showed small right upper and lower lobe emboli -started on eliquis and discharge on Eliquis to follow with Cardiology and also Pulmonary -No prior history of emboli/DVT Acute chest pain -Likely 2/2 acute PE -serial troponin levels negative DM2 with hyperglycemia -On SSI and Lantus Mild hyponatremia -On IV fluid, will monitor sodium level CAD -Status post stents placement -stable HTN -Stable COPD/Asthma -No acute exacerbation Anxiety -on PRN Xanax Disposition: TO HOME OR SELFCARE Time spent for discharge: 35 mins Core Measure Documentation - Palliative Care Palliative Care/ Comfort Measures: Not Applicable - Core Measures Any of the following diagnoses?: none Exam - Physical Exam Narrative exam: General appearance: Present: no acute distress, well-nourished - EENT Eyes: Present: PERRL, EOM intact ENT: hearing intact, clear oral mucosa - Neck Neck: Present: supple, normal ROM - Respiratory Respiratory effort: normal Respiratory: bilateral: CTA - Cardiovascular Rhythm: regular Heart Sounds: Present: S1 & S2. Absent: rub, click - Extremities Extremities: pulses symmetrical, No edema Peripheral Pulses: within normal limits - Abdominal General gastrointestinal: Present: soft, non-tender, non-distended, normal bowel sounds Female genitourinary: Present: deferred - Rectal Rectal Exam: deferred - Integumentary Integumentary: Present: clear, warm, dry - Musculoskeletal Musculoskeletal: gait normal, strength equal bilaterally - Psychiatric Psychiatric: appropriate mood/affect, intact judgment & insight - Neurologic Neurologic: CNII-XII intact, moves all extremities - Constitutional Vitals: Temp Pulse Resp BP Pulse Ox 98.7 F 71 18 119/53 97 07/31/19 12:43 07/31/19 12:43 07/31/19 12:43 07/31/19 12:43 07/31/19 12:43 Plan Activity: advance as tolerated, fall precautions Diet: low fat, diabetic Special Instructions: record daily BP diary, record blood sugar diary Follow up with: PRIMARY CARE, [Primary Care Provider] - 3-5 Days HERVE FERREIRA MD [Staff Physician] - 7 Days EJ DIAZ MD [Staff Physician] - 7 Days Prescriptions: AtorvaSTATin [Lipitor] 40 mg PO QHS #30 tablet Apixaban [Eliquis] 5 mg PO Q12HR #70 tablet Prednisone [predniSONE 5 mg (6-Day Pack, 21 Tabs)] 5 mg PO .TAPER #1 tab.ds.pk
[2019-07-31] MEDS ORDERED: INSULIN DETEMIR 40 UNIT SUB-Q SCH (22:00)
[2019-07-31] MEDS ORDERED: LANTUS SUB-Q SCH (22:00)
[2019-07-31] MEDS ORDERED: NON-FORMULARY (Rosuvastatin (Nf) 20 MG) PO SCH (22:00)
[2019-08-06] MEDS ORDERED: ELIQUIS PO SCH (22:00)
== END 2019-07-31 16:50 | disposition home or self-care (01) ==
LOC: ED 18:37 → 2B-ACE 23:24
PROVIDERS: ADMIT Internal Medicine; ATTEND Internal Medicine
DX: I26.99 Other pulmonary embolism without acute cor pulmonale (principal); R07.89 Other chest pain; E11.65 Type 2 diabetes mellitus with hyperglycemia; E87.1 Hypo-osmolality and hyponatremia; I25.10 Atherosclerotic heart disease of native coronary artery without angina pectoris; I10 Essential (primary) hypertension; J44.9 Chronic obstructive pulmonary disease, unspecified; F41.9 Anxiety disorder, unspecified
CPT/HCPCS: 36415; 71046; 71275; 80048; 82962; 84484; 85025; 85379; 93005; 93010; 96372; 96374; 96375; 96376; 99284; G0378; J7030; Q9967; J1815

== ENCOUNTER 2019-09-19 12:06 | Outpatient (CLI) | payer MEDICARE ==
--- NOTE | 2019-09-19 15:00 | Vascular Lab Report ---
DUPLEX DOPPLER LOWER EXTREMITY VEINS, BILATERAL INDICATION: PAIN R>L/PAIN IN LEG UNSPECIFIED. TECHNIQUE: Duplex doppler imaging was performed through the veins of both lower extremities using venous gorge francis and other maneuvers. COMPARISON: No relevant prior imaging study available. FINDINGS: Right Common femoral vein: Negative. Right Superficial femoral vein: Negative. Right Popliteal vein: Negative. Right Calf veins: Negative. Left Common femoral vein: Negative. Left Superficial femoral vein: Negative. Left Popliteal vein: Negative. Left Calf veins: Negative. Additional findings: None.. IMPRESSION: 1. No sonographic evidence for DVT in either lower extremity. Signer Name: Van Maguire MD Signed: 09/19/2019 2:56 PM Workstation Name: [id number]
== END 2019-09-19 12:07 | disposition home or self-care (01) ==
LOC: VAS 12:06
PROVIDERS: ATTEND Specialist
DX: M79.604 Pain in right leg (principal); M79.605 Pain in left leg
CPT/HCPCS: 93970

== ENCOUNTER 2020-04-17 10:10 | Outpatient (CLI) | payer MEDICARE ==
[2020-04-17 11:18] LABS: Blood Urea Nitrogen 12 mg/dL (7-17)
--- NOTE | 2020-04-17 12:18 | Cat Scan Report ---
. CTA CHEST WITH CONTRAST INDICATION : 415.9Pulmonary embolism and infarction/I26.99Other pulmonary embo. TECHNIQUE: Axial imaging performed through the chest, with contrast bolus timing set to maximize opa cification of the pulmonary arteries. Sagittal and coronal reformatted images. 3-plane MIP reformatte d images were obtained. All CT scans at this location are performed using CT dose reduction for ALAR A by means of automated exposure control. 100 mL of intravenous contrast administered. COMPARISON: 07/30/2019 FINDINGS: Bolus: Contrast bolus timing is adequate. PTE: No filling defect is present to suggest PTE. Small nonocclusive emboli leading to the right upp er lobe have resolved. Mediastinum: Heart and great vessels appear normal. No pathologic mediastinal adenopathy. Moderate hiatal hernia is unchanged. Lungs: Lungs are clear. Bones: Degenerative changes in the spine with nothing acute. Upper abdomen: Limited imaging of the upper abdomen shows nothing acute. IMPRESSION: No evidence for pulmonary embolus. Small emboli leading to the right upper lobe have resolved since the previous exam. No acute process in the chest. Hiatal hernia. Signer Name: Mitch Muro Jr, MD Signed: 04/17/2020 12:09 PM Workstation Name: [id number]
== END 2020-04-17 10:11 | disposition home or self-care (01) ==
LOC: CT 10:10
PROVIDERS: ATTEND Specialist
DX: K44.9 Diaphragmatic hernia without obstruction or gangrene (principal); M47.814 Spondylosis without myelopathy or radiculopathy, thoracic region; I26.99 Other pulmonary embolism without acute cor pulmonale
CPT/HCPCS: 36415; 71275; 82565; 84520; Q9967

== ENCOUNTER 2020-07-14 09:20 | Outpatient (CLI) | payer MEDICARE ==
[2020-07-14 10:14] LABS: Blood Urea Nitrogen 15 mg/dL (7-17)
== END 2020-07-14 09:21 | disposition home or self-care (01) ==
LOC: CT 09:20
PROVIDERS: ATTEND Specialist
DX: I26.99 Other pulmonary embolism without acute cor pulmonale (principal); R09.1 Pleurisy; R06.02 Shortness of breath; R07.9 Chest pain, unspecified
CPT/HCPCS: 36415; 82565; 84520

== ENCOUNTER 2020-08-04 09:36 | Outpatient (CLI) | payer MEDICARE ==
--- NOTE | 2020-08-04 13:15 | Vascular Lab Report ---
DUPLEX DOPPLER LOWER EXTREMITY VEINS, BILATERAL INDICATION: dvt evaluation. TECHNIQUE: Duplex doppler imaging was performed through the veins of both lower extremities using ve nous compression and other maneuvers. COMPARISON: No relevant prior imaging study available. FINDINGS: Right Common femoral vein: Negative. Right Superficial femoral vein: Negative. Right Popliteal vein: Negative. Right Calf veins: Negative. Left Common femoral vein: Negative. Left Superficial femoral vein: Negative. Left Popliteal vein: Negative. Left Calf veins: Negative. Additional findings: None. IMPRESSION: No sonographic evidence for DVT in either lower extremity. Signer Name: Mitch Muro Jr, MD Signed: 08/04/2020 1:10 PM Workstation Name: [id number]
== END 2020-08-04 09:37 | disposition home or self-care (01) ==
LOC: VAS 09:36
PROVIDERS: ATTEND Specialist
DX: I82.409 Acute embolism and thrombosis of unspecified deep veins of unspecified lower extremity (principal)
CPT/HCPCS: 93970

== ENCOUNTER 2021-09-23 12:13 | Outpatient (CLI) | payer MEDICARE ==
[2021-09-23 14:40] LABS: Blood Urea Nitrogen 15 mg/dL (7-17)
--- NOTE | 2021-09-23 15:25 | Cat Scan Report ---
CT CHEST WITH CONTRAST INDICATION / CLINICAL INFORMATION: DYSPNEA,COUGH OMNI 300 100ML. TECHNIQUE: Axial CT images were obtained through the chest after 100 cc Omnipaque 300 IV contrast. Sagittal and coronal reformatted images. All CT scans at this location are performed using CT dose reduction for A MARITZA by means of automated exposure control. COMPARISON: 04/17/2020 FINDINGS: HEART: Size is borderline with moderate three-vessel coronary artery calcifications. THORACIC AORTA: Moderate atherosclerotic calcification without acute abnormality. MEDIASTINUM and KATHRYN: Moderate hiatal hernia is unchanged. The remaining mediastinal structures are u nremarkable LUNGS: No acute air space or interstitial disease. PLEURA: No significant pleural effusion. No pneumothorax. SKELETAL SYSTEM: Mild osteopenia and degenerative changes in the thoracic spine. UPPER ABDOMEN: No significant abnormality. ADDITIONAL FINDINGS: None. IMPRESSION: No acute process or significant change since 04/17/2020. Borderline heart size with coronary artery disease. Hiatal hernia. No evidence for pneumonia. Signer Name: Mitch Muro Jr, MD Signed: 09/23/2021 3:20 PM Workstation Name: [id number]
== END 2021-09-23 12:14 | disposition home or self-care (01) ==
LOC: CT 12:13
PROVIDERS: ATTEND Specialist
DX: R05.9 Cough, unspecified (principal); K44.9 Diaphragmatic hernia without obstruction or gangrene; R06.00 Dyspnea, unspecified; I25.10 Atherosclerotic heart disease of native coronary artery without angina pectoris; I70.0 Atherosclerosis of aorta; M85.88 Other specified disorders of bone density and structure, other site
CPT/HCPCS: 36415; 71260; 82565; 84520; Q9967